=== PATIENT | female | born 1995 | race Caucasian/White ===

== ENCOUNTER → 2016-08-28 | Outpatient (CLI) | payer OTHER | LOC: LAB 12:55 | PROVIDERS: ATTEND Internal Medicine Gastroenterology | DX: D12.6 Benign neoplasm of colon, unspecified (principal) | CPT/HCPCS: 36415; 84702 ==

== ENCOUNTER → 2017-02-20 | Outpatient (CLI) | payer OTHER | LOC: LAB 12:16 | PROVIDERS: ATTEND Internal Medicine Gastroenterology | DX: D12.6 Benign neoplasm of colon, unspecified (principal) | CPT/HCPCS: 36415; 84702 ==

== ENCOUNTER → 2017-04-07 | Emergency (ER) | payer OTHER ==
[2017-04-07 04:26] LABS: ABSOLUTE EOSINOPHILS # (AUTO) 0.1 10^3/uL (0.0-0.6); ABSOLUTE MONOCYTES (AUTO) 0.2 10^3/uL (0.1-1.4); ABSOLUTE NEUT (AUTO) 3.7 10^3/uL (1.7-8.2); BASOPHILS % (AUTO) 0.6 % (0-2); EOSINOPHILS % (AUTO) 1.8 % (0-6); HEMATOCRIT 41.4 % (36.0-47.0); HEMOGLOBIN 14.1 g/dL (12.0-15.5); HGB HCT DIFFERENCE 0.9; LYMPHOCYTES % (AUTO) 33.3 % (13-45); MEAN CORPUSCULAR HEMOGLOBIN 31.5 pg (27.0-33.4); MEAN CORPUSCULAR HGB CONC 34.1 g/dL (32.0-36.0); MEAN CORPUSCULAR VOLUME 92 fl (80-97); MONOCYTES % (AUTO) 3.5 % (3-13); RED BLOOD COUNT 4.49 10^6/uL (3.72-5.28); RED CELL DISTRIBUTION WIDTH 12.4 % (11.5-14.0); SEGMENTED NEUTROPHILS % (AUTO) 60.8 % (42-78); WHITE BLOOD COUNT 6.1 10^3/uL (4.0-10.5)
[2017-04-07 04:42] LABS: ALANINE AMINOTRANSFERASE 30 U/L (9-52); ALBUMIN 4.8 g/dL (3.5-5.0); ALKALINE PHOSPHATASE 50 U/L (38-126); ANION GAP 17 (5-19); ASPARTATE AMINO TRANSFERASE 23 U/L (14-36); BILIRUBIN,DIRECT 0.2 mg/dL (0.0-0.4); BILIRUBIN,TOTAL 0.3 mg/dL (0.2-1.3); BLOOD UREA NITROGEN 8 mg/dL (7-20); CALCIUM 9.2 mg/dL (8.4-10.2); CARBON DIOXIDE 25 mmol/L (22-30); CHLORIDE 109 mmol/L (98-107); CREATININE RESULT 0.69 mg/dL (0.52-1.25); GLUCOSE 99 mg/dL (75-110); LIPASE 460.3 U/L (23-300); POTASSIUM 4.3 mmol/L (3.6-5.0); SODIUM 150.9 mmol/L (137-145); TOTAL PROTEIN 7.7 g/dL (6.3-8.2)
[2017-04-07 04:44] LABS: APPEARANCE,URINE CLEAR; BILIRUBIN,URINE NEGATIVE (NEGATIVE); GLUCOSE, URINE NEGATIVE (NEGATIVE); KETONES,URINE NEGATIVE (NEGATIVE); LEUKOCYTE ESTERASE,URINE NEGATIVE (NEGATIVE); NITRITE,URINE NEGATIVE (NEGATIVE); PROTEIN,URINE NEGATIVE (NEGATIVE); URINE SPECIFIC GRAVITY 1.008; UROBILINOGEN,URINE NEGATIVE mg/dL (<2.0)
--- NOTE | 2017-04-07 04:47 | ER Document Report ---
ED GI/ - General Mode of Arrival: Ambulatory Information source: Patient TRAVEL OUTSIDE OF THE [place] IN LAST 30 DAYS: No <DEBBIE LOCK - Last Filed: 04/07/17 05:17> <STEVE HEATH - Last Filed: 04/07/17 06:40> - General Chief Complaint: Abdominal Pain Stated Complaint: UPPER ABDOMINAL PAIN Time Seen by Provider: 04/07/17 04:36 Notes: Patient is a 22 year old female who presents to the emergency department complaining of epigastric abdominal pain onset 1 week ago. Patient states that her pain as worsened as the week progressed and is exacerbated when sitting up. Patients associated symptoms include nausea and vomiting onset today. Patient denies any hematuria, blood in stool or vomit, chest pain, trouble breathing, fevers, diarrhea or constipation. Patient states that she went to urgent care last night for her symptoms but was not diagnosed with anything. (DEBBIE LOCK) - Related Data Allergies/Adverse Reactions: No Known Allergies Allergy (Unverified 04/07/17 03:41) Past Medical History - General Information source: Patient - Social History Smoking Status: Never Smoker Cigarette use (# per day): No Chew tobacco use (# tins/day): No Smoking Education Provided: No Frequency of alcohol use: Occasional Drug Abuse: None Patient has suicidal ideation: No Patient has homicidal ideation: No <DEBBIE LOCK - Last Filed: 04/07/17 05:17> - Social History Family History: None <STEVE HEATH - Last Filed: 04/07/17 06:40> Review of Systems - Review of Systems Constitutional: No symptoms reported EENT: No symptoms reported Cardiovascular: No symptoms reported Respiratory: No symptoms reported Gastrointestinal: See HPI, Abdominal pain, Nausea, Vomiting Genitourinary: No symptoms reported Female Genitourinary: No symptoms reported Musculoskeletal: No symptoms reported Skin: No symptoms reported Hematologic/Lymphatic: No symptoms reported Neurological/Psychological: No symptoms reported -: Yes All other systems reviewed and negative <DEBBIE LOCK - Last Filed: 04/07/17 05:17> Physical Exam <DEBBIE LOCK - Last Filed: 04/07/17 05:17> <STEVE HEATH - Last Filed: 04/07/17 06:40> - Vital signs Vitals: Temp Pulse Resp BP Pulse Ox 97.9 F 106 H 16 134/88 H 97 04/07/17 03:35 04/07/17 03:35 04/07/17 03:35 04/07/17 03:35 04/07/17 03:35 - Notes Notes: GENERAL: Alert, interacts well. No acute distress. HEAD: Normocephalic, atraumatic. EYES: Pupils equal, round, and reactive to light. Extraocular movements intact. ENT: Oral mucosa moist, tongue midline. NECK: Full range of motion. Supple. Trachea midline. LUNGS: Clear to auscultation bilaterally, no wheezes, rales, or rhonchi. No respiratory distress. HEART: Regular rate and rhythm. No murmurs, gallops, or rubs. ABDOMEN: Soft, tender to palpation in the epigastrium and LUQ. Non-distended. Bowel sounds present in all 4 quadrants. EXTREMITIES: Moves all 4 extremities spontaneously. No edema, radial and dorsalis pedis pulses 2/4 bilaterally. No cyanosis. NEUROLOGICAL: Alert and oriented x3. Normal speech. PSYCH: Normal affect, normal mood. SKIN: Warm, dry, normal turgor. No rashes or lesions noted. (DEBBIE LOCK) Course - Laboratory Result Diagrams: 04/07/17 04:01 04/07/17 04:01 <DEBBIE LOCK - Last Filed: 04/07/17 05:17> - Laboratory Result Diagrams: 04/07/17 04:01 04/07/17 04:01 <STEVE HEATH - Last Filed: 04/07/17 06:40> - Re-evaluation Re-evalutation: 04/07/17 05:54 CBC unremarkable, CMP shows inexplicably elevated sodium at 150.9, also shows elevated lipase at 460.3, possibly mildly pancreatitis but more likely duodenal ulcer. Patient counseled about going to a clear liquid diet and then slowly adding back in solid foods as tolerated, hold off on greasy foods until she is tolerating a solid diet. Also recommend to take Zantac 75 mg twice a day and follow-up with her GI doctor as an outpatient for upper GI and H. pylori testing. Urinalysis unremarkable, test negative. (STEVE HEATH) - Vital Signs Vital signs: Temp Pulse Resp BP Pulse Ox 97.9 F 106 H 16 134/88 H 97 04/07/17 03:35 04/07/17 03:35 04/07/17 03:35 04/07/17 03:35 04/07/17 03:35 - Laboratory Laboratory results interpreted by me: 04/07/17 04:01 Sodium 150.9 H Chloride 109 H Lipase 460.3 H Discharge <DEBBIE LOCK - Last Filed: 04/07/17 05:17> <STEVE HEATH - Last Filed: 04/07/17 06:40> - Discharge Clinical Impression: Possible duodenal ulcer, Epigastric abdominal pain, Pre-hypertension Pancreatitis Qualifiers: Chronicity: acute Pancreatitis type: unspecified pancreatitis type Acute pancreatitis complication: unspecified Qualified Code(s): K85.90 - Acute pancreatitis without necrosis or infection, unspecified Condition: Stable Disposition: HOME, SELF-CARE Additional Instructions: Your lipase was slightly elevated today. As we discussed this can come from either pancreatitis or duodenal ulcer. To treat pancreatitis she should go back to a clear liquid diet for the next several days, do not eat anything greasy or fatty. You may slowly advance her diet as tolerated to more solid foods after you have had 24 hours without pain or vomiting. I have given you Zofran to treat your nausea. Please also follow-up with your [facility] assessor to investigate the possibility of a duodenal ulcer. You should take 75 mg of Zantac twice a day for at least the next 2 weeks. Please cut out cigarettes, caffeine, acidic food and other known triggers of heartburn. Prescriptions: Ondansetron [Zofran Odt 4 mg Tablet] 1 - 2 tab PO Q4H PRN #15 tab.rapdis PRN Reason: For Nausea/Vomiting Referrals: VERONICA ESTEBAN MD [Primary Care Provider] - Follow up as needed RODNEY PINON MD [ACTIVE STAFF] - Follow up in 1 week Scribe Attestation: 04/07/17 06:40 I personally performed the services described in the documentation, reviewed and edited the documentation which was dictated to the scribe in my presence, and it accurately records my words and actions. (STEVE HEATH) Scribe Documentation - Scribe Written by Parulibe:: Jhonny Jarrell, 04/07/2017 05:26 acting as scribe for :: Donald <DEBBIE LOCK - Last Filed: 04/07/17 05:17>
[2017-04-07 06:40] VITALS: BP 105/58
== END | disposition home or self-care (01) ==
LOC: ER 03:27
DX: R10.13 Epigastric pain (principal); R03.0 Elevated blood-pressure reading, without diagnosis of hypertension; K85.90 Acute pancreatitis without necrosis or infection, unspecified; R11.2 Nausea with vomiting, unspecified
CPT/HCPCS: 36415; 80053; 81001; 81025; 83690; 85025; 99284

== ENCOUNTER 2017-06-14 22:01 | Emergency (ER) | payer OTHER ==
[2017-06-14] MEDS ORDERED: CYCLOBENZAPRINE HCL 10 MG TABLET PO ONE (23:59)
[2017-06-14] MEDS ORDERED: KETOROLAC TROMETHAMINE INJ/PF 30 MG/1 ML SDV IM ONE (23:59)
--- NOTE | 2017-06-15 | ER Document Report ---
HPI - HPI Pain Level: 5 Context: Patient is a 22-year-old female presents emergency department after referral from her primary care with a chief complaint of low back pain. 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 She denies any urinary/stool incontinence, weakness, saddle anesthesia. Denies any previous back pain. She has not been taking anything [id number] for her symptoms Past Medical History - Social History Smoking Status: Unknown if Ever Smoked Family History: None Patient has suicidal ideation: No Patient has homicidal ideation: No Renal/ Medical History: Denies: Hx Peritoneal Dialysis Vertical Provider Document - CONSTITUTIONAL Agree With Documented VS: Yes Notes: PHYSICAL EXAM GENERAL: Alert, interacts well. Back: Minimal tenderness palpation of the bilateral paralumbar musculature with full range of motion. No spinous process tenderness, step-offs or deformities. EXTREMITIES: Moves all 4 extremities spontaneously. No edema, radial and dorsalis pedis pulses 2/4 bilaterally. No cyanosis. NEUROLOGICAL: Alert and oriented x4. normal gait. 5 out of 5 strength in both the distal and proximal upper and lower extremities bilaterally. Sensation is grossly intact throughout. Reflexes intact bilaterally in upper and lower extremities PSYCH: Normal affect, normal mood. SKIN: Warm, dry, normal turgor. No rashes or lesions noted. - INFECTION CONTROL TRAVEL OUTSIDE OF THE [place] IN LAST 30 DAYS: No - RESPIRATORY O2 Sat by Pulse Oximetry: 99 Course - Re-evaluation Re-evalutation: 06/15/17 01:19 The patient presents with low back pain without signs of spinal cord compression , cauda equina syndrome, infection, aneurysm, or other serious etiology. The patient is neurologically intact. Given the extremely low risk of these diagnoses further testing and evaluation for these possibilities does not appear to be indicated at this time. Her presentation is consistent with a pinched nerve and will have the patient follow-up for an MRI and with primary care tomorrow the patient has been instructed to return if the symptoms worsen or change in any way. - Vital Signs Vital signs: Temp Pulse Resp BP Pulse Ox 98.1 F 87 18 124/76 99 06/14/17 22:08 06/14/17 22:08 06/14/17 22:08 06/14/17 22:08 06/14/17 22:08 - Diagnostic Test Radiology reviewed: Image reviewed, Reports reviewed Discharge - Discharge Clinical Impression: Back pain Qualifiers: Back pain location: low back pain Chronicity: acute Back pain laterality: left Sciatica presence: without sciatica Qualified Code(s): M54.5 - Low back pain Condition: Good Disposition: HOME, SELF-CARE Additional Instructions: LOW BACK PAIN: Three out of every four people will have an episode of disabling back pain during their lifetime. Most commonly the pain is due to straining of the muscles and ligaments in the low back. Usual treatment includes: (1) Rest on a firm surface. Avoid lying on your stomach. (2) Ice pack the painful area. After a few days, gentle heat may be used intermittently to relax the area, or ice packs can be continued. (3) Medication may be needed -- muscle relaxers and antiinflammatory medicines are commonly used. (4) As the back improves, exercises are prescribed to strengthen the back and abdominal muscles. Your doctor will advise you on the proper care for your back at each stage in your recovery. You may be better in a few days -- or healing may take several weeks. If new symptoms of a "herniated disc" (radiation of pain, numbness, or tingling down the back of the leg or weakness in the leg) occur, you should be re-examined. Further testing may be necessary. PAIN MEDICATION INJECTION: You have received an injection of a pain medication. You should experience significant pain relief within 45 minutes. If this injection was a narcotic -- it will impair your judgement, slow your reaction time and make you sleepy (as well as relieve your pain). Narcotics also can cause nausea. You should not drive, work with machinery, or perform any task requiring mental alertness until all effects of the medication are gone -- six to eight hours. Do not take any alcohol, or sedatives, and do not take any other medication without checking with your physician. MUSCLE RELAXERS: Muscle relaxing medications are usually prescribed for acute muscle spasm or injury to the neck and back. They are often combined with antiinflammatory pain medication for increased relief. You may stop the muscle relaxer when the pain and stiffness have improved. Start the medication again if spasms recur. Muscle relaxers may cause drowsiness, especially with the first dose. Do not operate machinery or drive while under the effects of the medication. Most muscle relaxers last up to 24 hours. Do not combine the medication with alcohol. ICE PACKS: Apply ice packs frequently against the painful area. Many different schedules are recommended, such as "20 minutes on, 20 minutes off" or "one hour ice, two hours rest." If you need to work, you may need to go longer between ice treatments. You should plan to have the area ice packed AT LEAST one fourth of the time. The ice should be applied over the wrap, tape, or splint, or over a layer of cloth -- not directly against the skin. Some ice bags have a built-in cloth and can be put directly on the skin. WARM PACKS: After approximately two days, apply gentle heat (such as a heating pad or hot water bottle) for about 20 to 30 minutes about every two hours -- at least four times daily. Warmth and elevation will help you make a more rapid recovery , and will ease the pain considerably. Do not use HOT heat, and never apply heat for longer than 30 minutes. The continuous heat can invisibly damage skin and muscles -- even when no burn is seen on the surface. Damaged muscles can make you MORE sore. FOLLOW-UP CARE: If you have been referred to a physician for follow-up care, call the physician s office for an appointment as you were instructed or within the next two days. If you experience worsening or a significant change in your symptoms, notify the physician immediately or return to the Emergency Department at any time for re-evaluation. Prescriptions: Cyclobenzaprine HCl [Flexeril 10 mg Tablet] 10 mg PO TIDP PRN #15 tab PRN Reason: Ibuprofen [Motrin 800 mg Tablet] 800 mg PO Q8H PRN #30 tab PRN Reason: Forms: Follow-Up Radiology Testing, Return to Work Referrals: [facility] [Provider Group] - Follow up tomorrow
[2017-06-15 01:29] VITALS: BP 107/66
--- NOTE | 2017-06-15 02:06 | RADIOLOGY REPORT (SQ) ---
EXAM DESCRIPTION: L SPINE WHOLE COMPLETED DATE/TIME: 06/15/2017 1:19 am REASON FOR STUDY: back pain COMPARISON: None. NUMBER OF VIEWS: Five views including obliques. TECHNIQUE: AP, lateral, oblique, and sacral radiographic images acquired of the lumbar spine. LIMITATIONS: None. FINDINGS: MINERALIZATION: Normal. ALIGNMENT: Normal. VERTEBRAE: Maintained height. No compression fracture. DISCS: Preserved height. No significant osteophytes or end plate irregularity. POSTERIOR ELEMENTS: Pedicles and facets are intact. No pars defect. HARDWARE: None in the spine. PARASPINAL SOFT TISSUES: Normal. PELVIS: SI joints intact. IMPRESSION: No acute radiographic finding at the lumbar spine. TECHNICAL DOCUMENTATION: JOB ID: [id number] [employer] All Rights Reserved
== END 2017-06-15 01:29 | disposition home or self-care (01) ==
LOC: ER 22:01
DX: M54.5 Low back pain (principal); R20.0 Anesthesia of skin
CPT/HCPCS: 99283; 96372; 72110; J1885

== ENCOUNTER → 2017-08-21 | Outpatient (CLI) | payer OTHER | LOC: LAB 14:15 | PROVIDERS: ATTEND Internal Medicine Gastroenterology | DX: D12.6 Benign neoplasm of colon, unspecified (principal) | CPT/HCPCS: 36415; 84702 ==